=== PATIENT | male | born 1990 | race African-American/Black ===

== ENCOUNTER 2017-10-11 12:39 | Emergency (ER) | payer OTHER ==
[~2017-10-11] VITALS: Ht 167.6 cm; Wt 74.8 kg
[2017-10-11 13:15] LABS: ABSOLUTE NEUTROPHILS 9.2 thou/uL (1.4-8.2); BASOPHILS 0.6 % (0.0-2.0); EOSINOPHILS 0.2 % (0.0-3.0); HEMOGLOBIN 16.3 gm/dL (14.0-18.0); LYMPHOCYTES 6.6 % (24.0-44.0); MCH 28.7 pg (26.0-34.0); MCHC 33.3 g/dL (28.0-37.0); MCV 86.2 fL (80.0-100.0); MONOCYTES 5.1 % (1.0-8.0); PLATELET COUNT 171 thou/uL (150-400); POLYS 87.5 % (36.0-66.0); RBC 5.69 mil/uL (4.50-6.00); RDW 12.7 % (10.5-14.5); WBC 10.6 thou/uL (4.0-11.0)
[2017-10-11 13:23] LABS: CALCIUM 9.9 mg/dL (8.5-10.1); CREATININE 1.2 mg/dL (0.7-1.3); POTASSIUM 3.9 mmol/L (3.5-5.1)
[2017-10-11 13:29] LABS: ALBUMIN 4.1 g/dL (3.4-5.0); TOTAL PROTEIN 8.2 g/dL (6.4-8.2)
[2017-10-11 13:35] LABS: URINE BILIRUBIN NEGATIVE (Negative); URINE BLOOD NEGATIVE (Negative); URINE CLARITY CLEAR; URINE COLOR YELLOW; URINE GLUCOSE-RANDOM* NEGATIVE (Negative); URINE KETONES NEGATIVE (Negative); URINE LEUKOCYTES NEGATIVE (Negative); URINE NITRITE NEGATIVE (Negative); URINE PROTEIN (DIPSTICK) NEGATIVE (Negative)
[2017-10-11] MEDS ORDERED: ONDANSETRON HCL4 M2 PO (14:30)
[2017-10-11] MEDS ORDERED: LEVSIN0.125 MG PO (14:30)
== END 2017-10-11 17:16 | disposition home or self-care (01) ==
LOC: ER 12:39
PROVIDERS: Physician Assistant
DX: R10.30 Lower abdominal pain, unspecified (principal); M54.5 Low back pain

== ENCOUNTER 2018-02-12 13:55 | Emergency (ER) | payer OTHER ==
[~2018-02-12] VITALS: Ht 177.8 cm; Wt 77.1 kg
--- NOTE | ~2018-02-12 | EKG ---
[address] [address] [place] [address] ELECTROCARDIOGRAM REPORT Name: DEDRICK LEIJA Room #: DEP Rosa#: [id number] Admission: 02/12/18 Attend Phys: Discharge: 02/12/18 Date of : [birth year] Report #: [id number] THIS REPORT FOR: //name// [facility] ED Test Date: 2018-02-12 Test Time: 14:17:35 Pat Name: DEDRICK LEIJA Department: Room: Gender: M [employer] Machine Operator: EBONI : 1990 Requested By: Dany Friedman Order Number: [id number] MD: Cm Zapata Measurements Intervals [place] Rate: 86 P: 72 HI: 126 QRS: 7 QRSD: 98 T: 32 QT: 351 QTc: 420 Interpretive Statements Sinus rhythm ST elev, probable normal early repol pattern No previous ECG available for comparison Electronically Signed On 02-15-2018 9:07:59 CDT by Cm Zapata [email or web address] <ELECTRONICALLY SIGNED> By: Cm Zapata MD, [facility] 02/15/18 0907 1417 1417 Cm Zapata MD, FACC /EPI
[~2018-02-12 13:55] MED LIST: LEVSIN0.125 MG PO; ONDANSETRON HCL4 M2 PO
[2018-02-12 14:17] VITALS: BP 123/73
[2018-02-12 14:25] LABS: ABSOLUTE NEUTROPHILS 2.9 thou/uL (1.4-8.2); BASOPHILS 1.9 % (0.0-2.0); EOSINOPHILS 1.1 % (0.0-3.0); HEMATOCRIT 44.1 % (42.0-52.0); HEMOGLOBIN 15.2 gm/dL (14.0-18.0); LYMPHOCYTES 28.9 % (24.0-44.0); MCH 28.8 pg (26.0-34.0); MCHC 34.5 g/dL (28.0-37.0); MCV 83.4 fL (80.0-100.0); MONOCYTES 7.8 % (1.0-8.0); PLATELET COUNT 174 thou/uL (150-400); POLYS 60.3 % (36.0-66.0); RBC 5.29 mil/uL (4.50-6.00); RDW 12.8 % (10.5-14.5); WBC 4.8 thou/uL (4.0-11.0)
[2018-02-12 14:32] LABS: ANION GAP 8 mmol/L (7-16); BUN 15 mg/dL (7-18); CALCIUM 9.4 mg/dL (8.5-10.1); CHLORIDE 105 mmol/L (98-107); CO2 26 mmol/L (21-32); CREATININE 1.1 mg/dL (0.7-1.3); GLUCOSE 99 mg/dL (74-106); POTASSIUM 3.8 mmol/L (3.5-5.1); SODIUM 139 mmol/L (136-145)
[2018-02-12 14:41] LABS: TROPONIN-I <0.06 ng/mL (<0.06)
[2018-02-12 16:18] LABS: AMP/METHAMP Negative (Negative); BARBITURATES Negative (Negative); BENZODIAZEPINES Negative (Negative); COCAINE Negative (Negative); METHADONE Negative (Negative); OPIATES Negative (Negative); PCP Negative (Negative)
[2018-02-12] MEDS ORDERED: MOBIC15 MG PO (16:35)
== END 2018-02-12 17:27 | disposition home or self-care (01) ==
LOC: ER 13:55
PROVIDERS: Physician Assistant
DX: S16.1XXA Strain of muscle, fascia and tendon at neck level, initial encounter (principal); R51 Headache; R55 Syncope and collapse; R11.0 Nausea; R53.1 Weakness; V89.2XXA Person injured in unspecified motor-vehicle accident, traffic, initial encounter; Y92.89 Other specified places as the place of occurrence of the external cause; Y93.89 Activity, other specified; Y99.8 Other external cause status

== ENCOUNTER 2019-09-13 10:09 | Emergency (ER) | payer OTHER ==
[~2019-09-13] VITALS: Ht 167.6 cm; Wt 79.4 kg
[~2019-09-13 10:09] MED LIST changes: +MOBIC15 MG PO
[2019-09-13] MEDS ORDERED: ZYRTEC10 MG PO (12:00)
[2019-09-13] MEDS ORDERED: ZANTAC 150MG T150 M1 PO (12:00)
[2019-09-13] MEDS ORDERED: MEDROLDOSEPACK PO (12:00)
[2019-09-13 12:15] VITALS: BP 129/88
== END 2019-09-13 12:15 | disposition home or self-care (01) ==
LOC: ER 10:09
DX: R21 Rash and other nonspecific skin eruption (principal)

== ENCOUNTER 2021-04-24 11:54 | Emergency (ER) | payer OTHER ==
[~2021-04-24] VITALS: Ht 172.7 cm; Wt 81.7 kg
[~2021-04-24 11:54] MED LIST changes: +MEDROLDOSEPACK PO; +ZANTAC 150MG T150 M1 PO; +ZYRTEC10 MG PO
[2021-04-24 11:56] VITALS: BP 115/88
[2021-04-24 12:32] LABS: ABSOLUTE NEUTROPHILS 2.8 thou/uL (1.4-8.2); BASOPHILS 0.9 % (0.0-2.0); EOSINOPHILS 12.3 % (0.0-3.0); HEMATOCRIT 47.4 % (42.0-52.0); HEMOGLOBIN 15.3 gm/dL (14.0-18.0); LYMPHOCYTES 29.3 % (24.0-44.0); MCH 28.1 pg (26.0-34.0); MCHC 32.2 g/dL (28.0-37.0); MCV 87.4 fL (80.0-100.0); MONOCYTES 6.2 % (1.0-8.0); PLATELET COUNT 194 thou/uL (150-400); POLYS 51.3 % (36.0-66.0); RBC 5.42 mil/uL (4.50-6.00); RDW 13.2 % (10.5-14.5); WBC 5.4 thou/uL (4.0-11.0)
[2021-04-24 12:48] LABS: ANION GAP 9 mmol/L (7-16); BUN 8 mg/dL (7-18); CHLORIDE 108 mmol/L (98-107); CO2 25 mmol/L (21-32); CREATININE 1.1 mg/dL (0.7-1.3); GLUCOSE 128 mg/dL (74-106); POTASSIUM 4.3 mmol/L (3.5-5.1); SODIUM 142 mmol/L (136-145)
[2021-04-24 12:52] LABS: ALBUMIN 3.5 g/dL (3.4-5.0); SGOT 40 U/L (15-37); SGPT 90 U/L (16-63); TOTAL BILIRUBIN 0.7 mg/dL (0.2-1.0); TOTAL PROTEIN 7.5 g/dL (6.4-8.2)
--- NOTE | 2021-04-26 12:18 | EKG ---
[place] [address] [address] [facility] [place] [address] ELECTROCARDIOGRAM REPORT Name: DEDRICK LEIJA Room #: DEP Rosa#: [id number] Admission: 04/24/21 Attend Phys: Discharge: 04/24/21 Date of : [birth year] Report #: [id number] [facility] ED Test Date: 2021-04-24 Test Time: 11:59:26 Pat Name: DEDRICK LEIJA Department: Room: Gender: Teacher Asst: geeta : 1990 Requested By: [place] Light Order Number: [id number] MD: Cm Zapata Measurements Intervals [place] Rate: 79 P: 68 MD: 124 QRS: 22 QRSD: 97 T: 29 QT: 369 QTc: 424 Interpretive Statements Sinus rhythm Normal tracing Compared to ECG 02/12/2018 14:17:35 No significant change was found Electronically Signed On 04-26-2021 12:18:02 CDT by Cm Zapata [email or web address] <ELECTRONICALLY SIGNED> By: Cm Zapata MD, [facility] 04/26/21 1218 1159 1159 Cm Zapata MD, FAC /EPI
== END 2021-04-24 13:05 | disposition home or self-care (01) ==
LOC: ER 11:54
PROVIDERS: Emergency Medicine
DX: R07.89 Other chest pain (principal); Z20.822 Contact with and (suspected) exposure to COVID-19; R11.0 Nausea; R09.81 Nasal congestion; R04.2 Hemoptysis

== ENCOUNTER 2021-04-29 10:01 | Emergency (ER) | payer OTHER ==
[~2021-04-29] VITALS: Ht 172.7 cm; Wt 90.7 kg
[2021-04-29 10:37] LABS: ABSOLUTE NEUTROPHILS 2.4 thou/uL (1.4-8.2); BASOPHILS 0.9 % (0.0-2.0); EOSINOPHILS 16.6 % (0.0-3.0); HEMATOCRIT 47.8 % (42.0-52.0); HEMOGLOBIN 15.7 gm/dL (14.0-18.0); LYMPHOCYTES 21.9 % (24.0-44.0); MCH 28.3 pg (26.0-34.0); MCHC 32.8 g/dL (28.0-37.0); MCV 86.4 fL (80.0-100.0); MONOCYTES 12.7 % (1.0-8.0); PLATELET COUNT 183 thou/uL (150-400); POLYS 47.9 % (36.0-66.0); RBC 5.53 mil/uL (4.50-6.00); RDW 13.1 % (10.5-14.5); WBC 4.9 thou/uL (4.0-11.0)
[2021-04-29 10:58] LABS: ANION GAP 11 mmol/L (7-16); BUN 12 mg/dL (7-18); CALCIUM 9.3 mg/dL (8.5-10.1); CHLORIDE 104 mmol/L (98-107); CO2 25 mmol/L (21-32); CREATININE 1.1 mg/dL (0.7-1.3); GLUCOSE 107 mg/dL (74-106); POTASSIUM 4.4 mmol/L (3.5-5.1); SODIUM 140 mmol/L (136-145)
[2021-04-29 11:09] LABS: ALBUMIN 3.7 g/dL (3.4-5.0); SGOT 54 U/L (15-37); SGPT 157 U/L (16-63); TOTAL BILIRUBIN 0.6 mg/dL (0.2-1.0); TOTAL PROTEIN 8.2 g/dL (6.4-8.2)
[2021-04-29 12:03] VITALS: BP 124/91
--- NOTE | 2021-04-29 16:21 | EKG ---
[address] [address] [place] [address] ELECTROCARDIOGRAM REPORT Name: DEDRICK LEIJA Room #: [facility]P [id number] Admission: 04/29/21 Attend Phys: Discharge: 04/29/21 Date of : [birth year] Report #: [id number] [facility] ED Test Date: 2021-04-29 Test Time: 10:08:53 Pat Name: DEDRICK LEIJA Department: Room: Gender: M Tour Leader: LOLA : 1990 Requested By: Jerman Pisano Order Number: [id number] MD: Cm Zapata Measurements Intervals [place] Rate: 84 P: 73 UT: 132 QRS: 33 QRSD: 90 T: 43 QT: 346 QTc: 409 Interpretive Statements Sinus rhythm Probable left atrial enlargement RSR' in V1 or V2, probably normal variant ST elev, probable normal early repol pattern Compared to ECG 04/24/2021 11:59:26 RSR' in V1 or V2 now present ST (T wave) deviation now present Electronically Signed On 04-29-2021 16:21:05 CDT by Cm Zapata [email or web address] <ELECTRONICALLY SIGNED> By: Cm Zapata MD, [facility] 04/29/21 1621 1008 1008 Cm Zapata MD, [facility] /EPI
== END 2021-04-29 12:05 | disposition home or self-care (01) ==
LOC: ER 10:01
PROVIDERS: Emergency Medicine; Student in an Organized Health Care Education/Training Program
DX: R07.89 Other chest pain (principal); Z20.822 Contact with and (suspected) exposure to COVID-19; Z79.899 Other long term (current) drug therapy